=== PATIENT | female | born 1955 | race Caucasian/White ===

== ENCOUNTER 2023-01-01 12:02 | Emergency (ER) | payer OTHER, MEDICARE, MEDICAID ==
[~2023-01-01] VITALS: Ht 162.6 cm; Wt 84.4 kg
[2023-01-01 12:05] VITALS: BP 145/80; PULSE 70; RESP 17; TEMP 97.6; O2SAT 98
[2023-01-01] MEDS ORDERED: ACETAMINOPHEN 325 MG TAB PO ONE (13:35)
[2023-01-01] MEDS ORDERED: LIDO5TDM59 TP (15:08)
[2023-01-01] MEDS ORDERED: LID5T TP (15:31)
[2023-01-01 15:35] VITALS: BP 139/79; PULSE 71; RESP 18; TEMP 97.8; O2SAT 99
== END 2023-01-01 15:35 | disposition home or self-care (01) ==
LOC: MED 12:02
DX: S09.90XA Unspecified injury of head, initial encounter (principal); M54.2 Cervicalgia; Z79.899 Other long term (current) drug therapy; Z88.5 Allergy status to narcotic agent; V49.9XXA Car occupant (driver) (passenger) injured in unspecified traffic accident, initial encounter; Y93.89 Activity, other specified; Y92.410 Unspecified street and highway as the place of occurrence of the external cause; Y99.8 Other external cause status
CPT/HCPCS: 70450; 72125; 99284

== ENCOUNTER 2023-07-01 13:42 | Emergency (ER) | payer OTHER, MEDICARE ==
[~2023-07-01] VITALS: Ht 160 cm; Wt 102.1 kg
[~2023-07-01 13:42] MED LIST: LID5T TP
[2023-07-01 14:01] VITALS: BP 122/69; PULSE 92; RESP 18; TEMP 98; O2SAT 97
[2023-07-01] MEDS: CYCLOBENZAPRINE 10 MG TAB PO ONE (16:10)
[2023-07-01] MEDS: KETOROLAC 30 MG/ML VIAL IM ONE (16:15)
[2023-07-01] MEDS: LIDOCAINE 5% 1 EA PATCH TP ONE (16:17)
[2023-07-01] MEDS ORDERED: CYCL-711 PO (17:15)
[2023-07-01] MEDS ORDERED: IBUP-2213 PO (17:15)
[2023-07-01] MEDS ORDERED: LID5T TP (17:15)
[2023-07-01 17:30] VITALS: TEMP 98
[2023-07-01 17:49] VITALS: BP 122/61; PULSE 91; RESP 18; O2SAT 99
== END 2023-07-01 17:38 | disposition home or self-care (01) ==
LOC: MED 13:42
DX: S39.012A Strain of muscle, fascia and tendon of lower back, initial encounter (principal); S30.0XXA Contusion of lower back and pelvis, initial encounter; M81.0 Age-related osteoporosis without current pathological fracture; Z79.899 Other long term (current) drug therapy; Z88.5 Allergy status to narcotic agent; V89.2XXA Person injured in unspecified motor-vehicle accident, traffic, initial encounter; Y93.89 Activity, other specified; Y92.410 Unspecified street and highway as the place of occurrence of the external cause; Y99.8 Other external cause status
CPT/HCPCS: 72110; 72170; 96372; 99284; J1885